=== PATIENT | male | born 2000 | race Two or more races ===

== ENCOUNTER 2019-11-14 17:07 | Emergency (ER) | payer SELFPAY ==
[~2019-11-14] VITALS: Ht 177.8 cm; Wt 124.7 kg
[2019-11-14 17:10] VITALS: BP 128/86
--- NOTE | 2019-11-14 17:15 | NUR ---
ED Nurse Note: patient walked into ED from home c/o sorethroat and coughing since 11/13/19. patient denies any fever. patient reports he recently traveled back from [place]. patient is alert awake x4 ambulatory, breathing unlabored and even. pt. c/o cough and sore throat since tuesday when he came back from [place], no fever
[2019-11-14] MEDS ORDERED: IBUPROFEN400 MG ORAL (17:41)
[2019-11-14] MEDS ORDERED: AMOXICILLIN500 MG ORAL (17:41)
[2019-11-14] MEDS ORDERED: GUAIFENESI100 MG/5 M ORAL (17:41)
--- NOTE | 2019-11-14 17:41 | Emergency Room Report ---
History of Present Illness General Chief Complaint: Sore Throat Source: Patient Present Illness HPI 19-year-old male with no symptom past medical history here complaining of 2 days of a 10 out of 10 sore throat and minor cough and congestion. Reports that he just got back from [place] however denies any other travel history. Denies fever, difficulty breathing, chest pain, nausea vomiting. Has not taken medication for symptom relief. Vital signs are within normal limits. Patient is afebrile. Denies tobacco smoke, drug use. Allergies: Coded Allergies: No Known Allergies (Unverified , 11/14/19) Patient History Past Medical History: see triage record Past Surgical History: none Pertinent Family History: none Immunizations: UTD Reviewed Nursing Documentation: PMH: Agreed; PSxH: Agreed Nursing Documentation-PMH Past Medical History: No Stated History Review of Systems All Other Systems: negative except mentioned in HPI Physical Exam Vital Signs Date Time Temp Pulse Resp B/P (MAP) Pulse Ox O2 Delivery O2 Flow Rate FiO2 11/14/19 17:10 98.1 100 18 128/86 (100) 99 Room Air Sp02 EP Interpretation: reviewed, normal General Appearance: no apparent distress, alert, GCS 15, non-toxic Head: normocephalic, atraumatic Eyes: bilateral eye normal inspection, bilateral eye PERRL ENT: hearing grossly normal, no angioedema, normal voice, TMs + canals normal, nasal congestion, tonsillar swelling, pharyngeal erythema, tonsillar exudate Neck: full range of motion, supple/symm/no masses, other - Anterior cervical lymphadenopathy Respiratory: chest non-tender, lungs clear, normal breath sounds, no rhonchi, no wheezing, speaking full sentences Cardiovascular #1: regular rate, rhythm, no edema, no murmur Gastrointestinal: non tender, soft, no mass Genitourinary: no CVA tenderness Musculoskeletal: back normal Neurologic: alert, motor strength/tone normal, oriented x3, sensory intact, responsive, speech normal Psychiatric: normal inspection, judgement/insight normal Skin: no rash Lymphatic: adenopathy - Anterior cervical lymphadenopathy Medical Decision Making PA Attestation All my diagnosis and treatment plans were reviewed ad discussed with my supervising physician Dr. Lucero Diagnostic Impression: Primary Impression: Strep pharyngitis ER Course 19-year-old male with no symptom past medical history here complaining of 2 days of a 10 out of 10 sore throat and minor cough and congestion. Reports that he just got back from [place] however denies any other travel history. Denies fever, difficulty breathing, chest pain, nausea vomiting. Has not taken medication for symptom relief. Vital signs are within normal limits. Patient is afebrile. Denies tobacco smoke, drug use. Ddx considered but are not limited to: strep pharyngitis, URI, tonsillitis, peritonsillar abscess, influneza Vital signs: are WNL, pt. is afebrile H&PE are most consistent with: strep pharyngitis ORDERS: amoxicillin, guaifenesin ED INTERVENTIONS: None required at this time. DISCHARGE: At this time pt. is stable for d/c to home. Will provide printed patient care instructions, and any necessary prescriptions. Care plan and follow up instructions have been discussed with the patient prior to discharge. Take medication as reviewed, follow-up primary care provider, increase oral hydration, if worsening symptoms return to emergency room Last Vital Signs Date Time Temp Pulse Resp B/P (MAP) Pulse Ox O2 Delivery O2 Flow Rate FiO2 11/14/19 17:10 98.1 100 18 128/86 (100) 99 Room Air Disposition: HOME, SELF-CARE Condition: Stable Scripts Guaifenesin* (GUAIFENESIN*) 100 Mg/5 Ml Liquid 15 ML ORAL Q8H, #120 ML 0 Refills Prov: Meera Dela Cruz 11/14/19 Ibuprofen* (MOTRIN*) 400 Mg Tablet 400 MG ORAL THREE TIMES A DAY, #30 TAB 0 Refills Prov: Meera Dela Cruz 11/14/19 Amoxicillin* (AMOXIL*) 500 Mg Capsule 500 MG ORAL BID for 10 Days, #20 CAP Prov: Meera Dela Cruz 11/14/19 Patient Instructions: Strep Throat Additional Instructions: Take medication as directed, follow-up with your primary care provider, increase oral hydration, if worsening symptoms return to the emergency room Meera Dela Cruz Nov 14, 2019 17:41
[2019-11-14 17:46] VITALS: BP 128/86
--- NOTE | 2019-11-14 17:48 | NUR ---
ER DISCHARGE NOTE: Patient is cleared to be discharged per SERGIO DUBOIS, pt is aox4, on room air, with stable vital signs. pt was given dc and prescription instructions, pt was able to verbalize understanding, pt id band removed without complications. pt is able to ambulate with steady gait. pt took all belongings.
== END 2019-11-14 17:46 | disposition home or self-care (01) ==
LOC: EMR 17:29
DX: J02.0 Streptococcal pharyngitis (principal)
CPT/HCPCS: 99282